=== PATIENT | female | born 1990 | race Caucasian/White ===

== ENCOUNTER 2018-04-18 17:26 | Emergency (ER) | payer OTHER ==
[2018-04-18] MEDS ORDERED: Lorazepam 1 MG TAB ONE (18:14)
== END 2018-04-18 18:20 | disposition home or self-care (01) ==
LOC: NAV ERS 17:26
DX: J20.9 Acute bronchitis, unspecified (principal); F41.9 Anxiety disorder, unspecified; J45.909 Unspecified asthma, uncomplicated; Z79.899 Other long term (current) drug therapy
CPT/HCPCS: 99284